=== PATIENT | male | born 1955 | race Caucasian/White ===

== ENCOUNTER 2025-01-09 14:28 | Outpatient (CLI) | payer MEDICARE ==
--- NOTE | 2025-01-10 21:17 | CONSULTATION ---
DATE OF CONSULTATION: 01/09/2025 DICTATING PHYSICIAN: Nelly Hernández M.S., [facility]-INTER[employer] PROFESSOR MODIFIED BARIUM SWALLOW STUDY REPORT REFERRING PHYSICIAN: Ana Paula Cheema MD. HISTORY OF PRESENT ILLNESS: The patient is a 69-year-old male and consents to this evaluation. History obtained from the patient and medical records. The patient reports symptoms of dysphagia including difficulty with foods going down his esophagus. He reports that he feels as if it takes longer for his food to travel through his esophagus. He notes that he has some pain with food sticking in his esophagus and that as he is eating, he has to stop and wait for it to pass through before he continues on with his meal. He reports that this pain and sticking with needing to wait at a mealtime, occurs about once a week. He also notes coughing on either liquid or saliva about once a week at this point as well. He is unsure as far as how long both of these symptoms have been occurring. CURRENT DIET: In terms of caffeine, the patient has 2 cups of coffee on a daily basis. He does not utilize tobacco products or drink alcohol. He consumes chocolate 3 times weekly. In terms of dairy products, the patient has milk on a daily basis. He reports that he probably has about half a pint with his coffee and a liter in his protein drink 3 days a week, totaling about 1 and a half gallons a week. He also notes that he has about half a pint of ice cream a week and 2 slices of cheese a week. A typical breakfast consists of oatmeal with milk or granola with milk, both which would then contain bananas, blueberries, strawberries, apricots and nuts. He also just snacks on these items throughout the morning. He then has a protein drink at 3 p.m. on Mondays, Wednesdays, and Fridays. Typical dinner is eaten at 6 p.m. and may be halibut with asparagus, rice, and salad or chicken salad with asparagus and broccoli, or could be ground beef, salmon, or lasagna. He has a dessert at 7:15 p.m. every other night of either cookies or ice cream. He goes to bed at 9:30 in which he would be watching TV and then about 1-2 hours later would go to sleep. PARAMETERS: The patient is seated in a lateral 90-degree view and administered the usual protocol of thin and nectar thick liquids, puree and solid consistencies, as well as self-regulated boluses of thin liquids from a cup. RESULTS: In the oral stage of the swallow, it appears that oral transit is characterized by reduced lingual palatal stripping secondary to reduced tongue-based retraction. There is a mild oral residue following the initial swallow of the boluses. In the pharyngeal stage of the swallow, tongue-based retraction is pupt-ql-jwqcoliche reduced. There is a swallow initiation that is delayed to the level of the vallecula for thin liquid boluses and to the level of the piriformis for the 5 mL nectar thick liquid bolus and self-regulated bolus of thin liquid from a cup. Elevation of the hyothyroid complex is accomplished with full range of motion. Anterior movement of the posterior pharyngeal wall is observed. PES opening is within functional limits. There is a bnsz-kl-kqkjtuyj pharyngeal residue residing at the level of the vallecula and the PES opening after the tail of the bolus passes for the first swallow of the bolus. In terms of airway safety, at no time was the patient noted to penetrate or aspirate on any of the bolus sizes or consistencies. ANTERIOR, POSTERIOR VIEW: In the AP plane, the bolus split symmetrically between the piriform sinuses and there was proximal movement of the bolus to the level of the mid sternum. IMPRESSION: The patient demonstrates with what appears to be a bcrb-lm-lktbrqhf pharyngoesophageal stage swallowing disorder characterized by qchu-or-viurbhvupo reduced tongue-based retraction, delayed swallow initiation to the level of the vallecula for most thin liquids and to the level of the piriform for 5 mL nectar thick liquid and self-regulated bolus of thin liquid from a cup, vsfk-hu-lebdywtf pharyngeal residue and proximal movement of the bolus in the AP view to the level of the mid sternum. DIAGNOSES: R13.14, dysphagia pharyngoesophageal phase; K21.9, gastroesophageal reflux disease. PATIENT EDUCATION: Immediately following modified barium swallow study, the patient was able to view the results. The normal anatomy of the swallowing mechanism was reviewed. The patient was able to see how the current status of the oral motor and swallowing mechanism decreases his ability to swallow normally. He was educated on a recommendation for speech therapy to strengthen the tongue base and declined at this time. He was also educated on dietary modifications for laryngopharyngeal reflux disease and a written handout was provided. RECOMMENDATIONS: * It is recommended the patient receive swallowing therapy 1 time weekly for 12 weeks to strengthen the tongue base to ensure airway safety protection and prevent aspiration. The patient declined the recommendation at this time, but also requested the clinician's card should he decide to pursue swallowing therapy in the future. * It is recommended that the patient follow the aforementioned dietary modifications for laryngopharyngeal reflux disease. LONG-TERM GOALS: The patient will maintain adequate hydration/nutrition with optimum safety and efficiency of swallow function on p.o. intake without overt signs and symptoms of aspiration for the highest possible diet level. FUNCTIONAL ORAL INTAKE: The FOIS was administered to establish and document the change in the functional eating activities of this patient over time. This is a 7-point scale with 1 indicating no oral intake and totally tooth dependent and 7 indicating total oral intake with no restrictions. This patient received a 6, which indicates he has a total oral diet with multiple consistencies without special preparation, but with specific food limitations and precautions. G-CODE: [id number]. Thank you very much for asking me to participate in the care of this kind patient. Should you have any questions regarding this evaluation or recommendations, please do not hesitate to contact me at [phone]. During this examination, 2 minutes and 45 seconds of fluoroscopy time and 18.02 CAK mGy were utilized. Nelly Hernández M.S., [facility]-[employer]ATIONAL [employer]ATIONS PROFESSOR TID: [id number] RECEIPT: [id number] ANDI CARDONA
== END 2025-01-09 23:59 | disposition home or self-care (01) ==
LOC: RAD 14:28
PROVIDERS: ATTEND Family Medicine
DX: R13.10 Dysphagia, unspecified (principal); K22.2 Esophageal obstruction; R13.11 Dysphagia, oral phase; K21.9 Gastro-esophageal reflux disease without esophagitis
CPT/HCPCS: 74230